=== PATIENT | female | born 1945 | race Caucasian/White ===

== ENCOUNTER 2023-12-09 11:46 | Emergency (ER) | payer MEDICARE, BC, SELFPAY ==
[2023-12-09 11:46] VITALS: BMI 25.4
[2023-12-09 11:49] VITALS: BP 168/82
--- NOTE | 2023-12-09 12:29 | ED.GENMED ---
History of Present Illness
General
Chief Complaint: Abdominal Symptoms
Time Seen by Provider: 12/09/23 12:03
Travel History
Have you had any contact with someone who has COVID-19?: No
Do you have any symptoms of coronavirus? Fever > 100 degrees, chills, cough, shortness of breath, sore throat, loss of taste or smell, muscle aches, or headache?: No
History of Present Illness
History of Present Illness:
78-year-old female with history of hypertension and hyperlipidemia presents to the emergency department for evaluation of upper abdominal pain radiating to the right flank beginning 3 days ago. Pain is worse approximately 30 to 45 minutes after any
oral intake. Radiates to the right lower quadrant. Denies any fevers but does feel chills. No night sweats, vomiting, or diarrhea. Does report increased bloating and belching. Prior abdominal surgeries include total hysterectomy.
Past History
Past History
ED Past Medical History: HTN
Social History
Tobacco: Non-smoker
Alcohol: None
Drug: None
Personal:
Review of Systems
Review of Systems
Allergies reviewed?: Yes
All Other Systems: ROS reviewed and negative except as documented in HPI and ROS
Phy Exam
Physical Exam
Physical Exam:
GEN: Well appearing, NAD, WDWN
Eyes: PERRLA, EOMs intact, no scleral icterus
HENT: NCAT, oral mucosa moist
Lungs: CTAB, no wheezes, rales, rhonchi, normal chest wall excursion
Cardiac: RRR, no M/R/G, no peripheral edema. Radial pulses 2+ bilat
Abdomen: Soft, moderate tenderness to the epigastrium and right upper quadrant with positive Baker sign
Neuro: AO x 3
MSK: No gross deformity or ecchymosis.
Skin: No rashes, petechiae. Normal color, no pallor or jaundice.
Psych: Calm, cooperative, proper hygiene
Course
Orders/Labs/Results
Orders:
Orders
12/09/23 12:22
US Abdomen Complete/Upper Urgent
Comment:
Reason For Exam: RUQ pain
12/09/23 13:06
Complete Blood Count/With Diff Urgent
Comprehensive Metabolic Panel Urgent
Lipase Urgent
12/09/23 15:23
CT Abd/Pel (IV only)-DH only Urgent
Comment:
Reason For Exam: RUQ pain, neg US
12/09/23 16:21
Famotidine [Pepcid] 20 mg IV NOW STA
Pantoprazole [Protonix IV] 40 mg IV NOW STA
Abnormal Lab Results
12/09/23
13:06
Hct 36.8 L %
(37.0-47.0)
MCV 80.9 L fL
(81.0-99.0)
Absolute Monos (auto) 0.8 H 10^3/uL
(0.1-0.6)
Lymphocytes % 19.1 L %
(20.5-51.1)
Sodium 134 L mmol/L
(135-145)
BUN 18 H mg/dl
(7-17)
Glucose 109 H mg/dl
(70-99)
12/09/23 13:06
12/09/23 13:06
Vital Signs
Initial and Last Documented VS:
Initial Vital Signs
Temp Pulse Resp BP Pulse Ox
98.0 F 96 16 168/82 98
12/09/23 11:49 12/09/23 11:49 12/09/23 11:49 12/09/23 11:49 12/09/23 11:49
Last Documented Vital Signs
Temp Pulse Resp BP Pulse Ox
98.0 F 84 16 155/69 100
12/09/23 11:49 12/09/23 16:36 12/09/23 16:36 12/09/23 16:36 12/09/23 16:36
MDM/Problems Addressed
MDM/Problems Addressed:
Patient's symptoms are likely on the basis of peptic ulcer disease evidenced by findings on CT scan. She has an unremarkable biliary ultrasound. Will start her on PPIs and Carafate, outpatient GI follow-up advised. The constipation and minor
finding of pneumatosis, she has a nonperitoneal abdomen and no lower abdominal tenderness. Encouraged bowel regimen with MiraLAX and increased dosing of Colace. ED return parameters discussed
*Critical Care Note
Total Time (30-74mins, 75-104mins- exclusive of procedures): Not Applicable
ED Attending Note
-
Portions of this chart may have been created with voice recognition software.� Occasional wrong word or��sound alike� substitutions may have occurred due to the inherent limitations of voice recognition software.
Discharge Plan
Departure
Patient Disposition: Home (Routine Discharge)
Date of Disposition: 12/09/23
Time of Disposition: 16:26
Patient with high blood pressure during this ER visit?: No
Discharge Problem:
Gastric ulcer, Constipation
Instructions: Peptic Ulcers (DC)
Prescriptions:
New
pantoprazole 40 mg tablet,delayed release (DR/EC)
40 mg PO BID 30 Days Qty: 60 0RF
sucralfate [Carafate] 1 gram tablet
1 g PO AC Qty: 90 0RF
Rx Instructions:
Dissolve in 10mL clear liquid prior to use
No Action
multivitamin 1 EACH tablet
1 ea PO DAILY
trandolapril [Mavik] 4 MG tablet
4 mg PO DAILY
simvastatin 10 MG tablet
10 mg PO MOTUWETHFR
hydrochlorothiazide 12.5 MG capsule
12.5 mg PO DAILY
conjugated estrogens [Premarin] 0.3 MG tablet
0.3 mg PO DAILY
Flaxseed
1 sc PO DAILY
Jeane
1 sc PO DAILY
potassium chloride [K-Dur] 20 MEQ tablet,ER particles/crystals
20 meq PO DAILY Qty: 30 0RF
ondansetron 4 MG tablet,disintegrating
4 mg PO TIDPRN PRN (Reason: nausea/vomiting) Qty: 9 0RF
Referrals:
Trey Cifuentes MD [Active] - Call in 1-3 days for appt
Cassie Fontenot DO [Family Provider] -
Activity Restrictions/Additional Instructions:
Your CT scan also shows severe constipation. Please increase your Colace dosage to twice daily and add a full capful of MiraLAX daily until you have regular bowel movements. Please increase your clear liquid intake while using MiraLAX. Follow-up
with gastroenterology. If your pain worsens or you develop a fever, please return to the emergency department immediately
Interventions
Interventions:
*Risk Screen - Suicide Last Done: 12/09/23 13:00
*General Assessment Last Done: 12/09/23 13:00
*Neglect/Abuse Screening Last Done: 12/09/23 13:00
ED- Fall Risk Assessment Last Done: 12/09/23 16:25
*ED COVID-19 Vaccine History Last Done: 12/09/23 11:49
*Nursing Disposition Last Done: 12/09/23 16:39
JW-Yqyvca-Vkkwvbnatk Assessment Last Done: 12/09/23 13:00
Discharge Date and Time
Discharge Date/Time: 12/09/23 16:43
Print Language: CYMRO
[2023-12-09 13:12] LABS: % Basophils 0.6 % (0-2); % Eosinophils 0.5 % (0-6); % Immature Granulocytes 0.4 % (0-0.5); % Lymphocytes 19.1 % (20.5-51.1); % Monocytes 9.3 % (1.7-9.3); % Neutrophils 70.1 % (42.2-75.2); Absolute Basophils 0.1 10^3/uL (0-0.2); Absolute Lymphocytes 1.6 10^3/uL (1.2-3.4); Absolute Monocytes 0.8 10^3/uL (0.1-0.6); Absolute Neutrophils 5.9 10^3/uL (1.4-6.5); Hematocrit 36.8 % (37.0-47.0); Hemoglobin 12.4 g/dL (12.0-16.0); Mean Corp Hgb Conc. 33.7 g/dL (33.0-37.0); Mean Corpuscular Hgb 27.3 pg (27.0-31.0); Mean Corpuscular Volume 80.9 fL (81.0-99.0); Mean Platelet Volume 9.3 fL (7.4-10.4); Nucleated Red Blood Cells % 0 %; Platelet Count 292 10^3/uL (130-400); Red Blood Cell Count 4.55 10^6/uL (4.20-5.40); Red Cell Dist. Width 13.5 % (11.5-14.5); White Blood Cell Count 8.5 10^3/uL (4.8-10.8)
[2023-12-09 13:24] LABS: ALT (SGPT) 22 U/L (0-35); AST (SGOT) 29 U/L (14-36); Albumin 4.5 g/dl (3.5-5.0); Alkaline Phosphatase 55 U/L (38-126); Blood Urea Nitrogen 18 mg/dl (7-17); Calcium 9.7 mg/dl (8.4-10.2); Carbon Dioxide 26 mmol/L (22-30); Chloride 101 mmol/L (98-107); Estimated Creatinine Clearance 54 ml/min; Glucose 109 mg/dl (70-99); Lipase 87 U/L (23-300); Potassium 3.6 mmol/L (3.5-5.1); Sodium 134 mmol/L (135-145); Total Bilirubin 0.9 mg/dl (0.2-1.3); Total Protein 7.5 g/dl (6.3-8.2); eGFR > 60.00
[2023-12-09] MEDS: PROTONIX IV 40 MG IV (16:28)
[2023-12-09] MEDS: PEPCID 20 MG IV (16:28)
[2023-12-09 16:36] VITALS: BP 155/69
== END 2023-12-09 16:43 | disposition home or self-care (01) ==
LOC: EMR 11:46
PROVIDERS: Physician Assistant; EMERGENCY PHYSICIAN Emergency Medicine; FAMILY PHYSICIAN Internal Medicine
DX: K25.3 Acute gastric ulcer without hemorrhage or perforation (principal); K59.00 Constipation, unspecified; I10 Essential (primary) hypertension; E78.5 Hyperlipidemia, unspecified
CPT/HCPCS: 99285; 96375; 96374; 74177; 76700; 80053; 83690; 85025; Q9967

== ENCOUNTER 2023-12-16 06:12 | Emergency (ER) | payer MEDICARE, BC, SELFPAY ==
[2023-12-16 06:13] VITALS: BMI 22.0
[2023-12-16] MEDS: ZOFRAN 4 MG IV (06:34)
[2023-12-16] MEDS: NSS 1000 IV (06:35)
[2023-12-16 06:45] LABS: % Basophils 0.6 % (0-2); % Eosinophils 0.1 % (0-6); % Immature Granulocytes 0.4 % (0-0.5); % Lymphocytes 12.8 % (20.5-51.1); % Monocytes 4.4 % (1.7-9.3); % Neutrophils 81.7 % (42.2-75.2); Absolute Basophils 0.1 10^3/uL (0-0.2); Absolute Lymphocytes 1.4 10^3/uL (1.2-3.4); Absolute Monocytes 0.5 10^3/uL (0.1-0.6); Absolute Neutrophils 8.8 10^3/uL (1.4-6.5); Hematocrit 42.2 % (37.0-47.0); Mean Corp Hgb Conc. 33.2 g/dL (33.0-37.0); Mean Corpuscular Hgb 27.2 pg (27.0-31.0); Mean Corpuscular Volume 81.9 fL (81.0-99.0); Mean Platelet Volume 9.6 fL (7.4-10.4); Nucleated Red Blood Cells % 0 %; Platelet Count 376 10^3/uL (130-400); Red Blood Cell Count 5.15 10^6/uL (4.20-5.40); Red Cell Dist. Width 13.1 % (11.5-14.5); White Blood Cell Count 10.8 10^3/uL (4.8-10.8)
[2023-12-16 06:56] LABS: ALT (SGPT) 22 U/L (0-35); AST (SGOT) 22 U/L (14-36); Albumin 4.5 g/dl (3.5-5.0); Alkaline Phosphatase 57 U/L (38-126); Blood Urea Nitrogen 21 mg/dl (7-17); Calcium 9.9 mg/dl (8.4-10.2); Carbon Dioxide 24 mmol/L (22-30); Chloride 100 mmol/L (98-107); Estimated Creatinine Clearance 40 ml/min; Glucose 141 mg/dl (70-99); Lipase 103 U/L (23-300); Potassium 3.6 mmol/L (3.5-5.1); Sodium 134 mmol/L (135-145); Total Bilirubin 0.6 mg/dl (0.2-1.3); Total Protein 7.3 g/dl (6.3-8.2); eGFR > 60.00
--- NOTE | 2023-12-16 07:35 | ED.GENMED ---
History of Present Illness
<Kinjal Rouse PA-C - Last Filed: 12/16/23 12:39>
General
Chief Complaint: Abdominal Symptoms
Source: patient
Exam Limitations: none
Time Seen by Provider: 12/16/23 07:04
Nursing documentation reviewed up to this point in time: agreed with
Travel History
Have you had any contact with someone who has COVID-19?: No
Do you have any symptoms of coronavirus? Fever > 100 degrees, chills, cough, shortness of breath, sore throat, loss of taste or smell, muscle aches, or headache?: No
History of Present Illness
History of Present Illness:
78 y/o F generally fairly healthy
was here 1 week ago for epigastric pain
labs unremarkable, had ct showing severe constipation, mild pneumatosis rectal area; and what looked like gastritis vs PUD
pt was put on protonix, carafate and miralax/colace
ahd f/u with her PCP 4 days ago and says her pain got a lot better
tyring to get a sooner appt with GI than february which is what she was able to get
wentt o a [facility] yesterday evening
by 8 pm she started feeling unwell
thought maybe the mirlax was really starting to work and then had 5 episodes of vomiting and diarrhea throughout the night and felt weak this morning so she called 911
felt very dehydrated
no fever, chills, and only had lower abd pain before diarrhea episodes and not otherwise
no black stool, no bloody stool
Past History
<Kinjal Rouse PA-C - Last Filed: 12/16/23 12:39>
Past History
ED Past Medical History: HTN
Social History
Tobacco: Non-smoker
Alcohol: None
Drug: None
Personal:
Review of Systems
<Kinjal Rouse PA-C - Last Filed: 12/16/23 12:39>
Review of Systems
Allergies reviewed?: Yes
All Other Systems: Not applicable
Phy Exam
<Kinjal Rouse PA-C - Last Filed: 12/16/23 12:39>
Physical Exam
Physical Exam:
GENERAL: Alert , in no apparent distress
EYE: pupils equal and reactive
NECK: Supple
ENT: o/p clr, mmm.
CARDIAC: Regular rate and rhythm .no edema
LUNGS: Clear breath sounds bilaterally, no acute respiratory distress, no wheezes/rales/rhonchi
ABDOMEN: Soft, without focal tenderness, no r/g, no cvat, normal bowel sounds
rectal heme neg brown stool
NEUROLOGICAL: Alert and oriented, no focal neuro deficits
SKIN: Warm and dry, skin intact.
MUSCULOSKELETAL: No edema, well perfused. neg carlos's sign
PSYCH: Normal and appropriate interaction.
Course
<Kinjal Rouse PA-C - Last Filed: 12/16/23 12:39>
Orders/Labs/Results
Orders:
Orders
12/16/23 06:32
Complete Blood Count/With Diff Urgent
Comprehensive Metabolic Panel Urgent
Lipase Urgent
Ondansetron Injectable [Zofran] 4 mg .ROUTE .STK-MED ONE
12/16/23 06:34
Ondansetron Injectable [Zofran] 4 mg IV NOW STA
12/16/23 06:35
0.9% Sodium Chloride 1000 ml [Nss] 1,000 ml IV BOLUS
12/16/23 07:31
Obstruct Series W/PA Chest [CR Obstruct Series W/pa Chest] Urgent
Comment:
Reason For Exam: n/v/d ,h/o severe constipation
Abnormal Lab Results
12/16/23
06:32
Absolute Neuts (auto) 8.8 H 10^3/uL
(1.4-6.5)
Neutrophils % 81.7 H %
(42.2-75.2)
Lymphocytes % 12.8 L %
(20.5-51.1)
Sodium 134 L mmol/L
(135-145)
BUN 21 H mg/dl
(7-17)
Glucose 141 H mg/dl
(70-99)
12/16/23 06:32
12/16/23 06:32
Vital Signs
Initial and Last Documented VS:
Initial Vital Signs
Temp Pulse Resp Pulse Ox
97.7 F 89 26 100
12/16/23 06:13 12/16/23 06:13 12/16/23 06:13 12/16/23 06:13
Last Documented Vital Signs
Temp Pulse Resp BP Pulse Ox
98.1 F 71 16 115/56 98
12/16/23 11:08 12/16/23 11:08 12/16/23 11:08 12/16/23 11:08 12/16/23 11:08
<Sergio Whiteside, - Last Filed: 12/16/23 08:49>
Orders/Labs/Results
Orders:
Orders
12/16/23 06:32
Complete Blood Count/With Diff Urgent
Comprehensive Metabolic Panel Urgent
Lipase Urgent
Ondansetron Injectable [Zofran] 4 mg .ROUTE .STK-MED ONE
12/16/23 06:34
Ondansetron Injectable [Zofran] 4 mg IV NOW STA
12/16/23 06:35
0.9% Sodium Chloride 1000 ml [Nss] 1,000 ml IV BOLUS
12/16/23 07:31
Obstruct Series W/PA Chest [CR Obstruct Series W/pa Chest] Urgent
Comment:
Reason For Exam: n/v/d ,h/o severe constipation
Abnormal Lab Results
12/16/23
06:32
Absolute Neuts (auto) 8.8 H 10^3/uL
(1.4-6.5)
Neutrophils % 81.7 H %
(42.2-75.2)
Lymphocytes % 12.8 L %
(20.5-51.1)
Sodium 134 L mmol/L
(135-145)
BUN 21 H mg/dl
(7-17)
Glucose 141 H mg/dl
(70-99)
12/16/23 06:32
12/16/23 06:32
Vital Signs
Initial and Last Documented VS:
Initial Vital Signs
Temp Pulse Resp Pulse Ox
97.7 F 89 26 100
12/16/23 06:13 12/16/23 06:13 12/16/23 06:13 12/16/23 06:13
Last Documented Vital Signs
Temp Pulse Resp BP Pulse Ox
98.1 F 71 16 115/56 98
12/16/23 11:08 12/16/23 11:08 12/16/23 11:08 12/16/23 11:08 12/16/23 11:08
<Kinjal Rouse PA-C - Last Filed: 12/16/23 12:39>
MDM/Problems Addressed
Differential Diagnosis Includes:
gastroenteritis, bowel obstruction, constipation
MDM/Problems Addressed:
78 y/o F htn, hld
here with epigastric pain last week
on ppi and stool softeners because she was severely constipated
symptoms improved until last nigth when she started n/v/d
no significant pain
no fever/chils/black stool
feels better after IVF and zofran
no abdominal tenderness
looked dry on exam
labs are fiarly unremarkable
considered xray rather than CT due to lack of pain/tenderness; unlikely that her pneumatosis is wosre given lack of fever and normal wbc.
xr shows some stool in colon but nonobstructive bowle gas
pt feels better
tolerated po
d/c with short rx zofran
return precatuiosn.
<Kinjal Rouse PA-C - Last Filed: 12/16/23 12:39>
*Critical Care Note
Total Time (30-74mins, 75-104mins- exclusive of procedures): Not Applicable
ED Attending Note
<Kinjal Rouse PA-C - Last Filed: 12/16/23 12:39>
-
Portions of this chart may have been created with voice recognition software.� Occasional wrong word or��sound alike� substitutions may have occurred due to the inherent limitations of voice recognition software.
<Sergio Whiteside DO - Last Filed: 12/16/23 08:49>
ED Attending Note
Patient seen and examined by attending physician: Yes
I performed the substantive portion of visit, reviewed & personally made and approve the management plan that is documented in note by myself or MONROE.: Yes
ED Attending Note:
78-year-old female who was recently here about a week ago abdominal pain. Was diagnosed with possible peptic ulcer disease but also constipation. States she had been proving a little bit and since has been having some soft bowel movements.
Patient states she began to vomit. On my evaluation patient feels much better. Previous CT report reviewed. On exam: Awake alert, no respiratory stress, abdomen soft and nontender. No distention. No active vomiting. Assessment plan: Labs
reassuring. No bowel obstruction by imaging. White count normal. Continue to observe. Anticipate discharge
Discharge Plan
Departure
Patient Disposition: Home (Routine Discharge)
Date of Disposition: 12/16/23
Time of Disposition: 10:59
Patient with high blood pressure during this ER visit?: No
Condition: Fair
Discharge Problem:
Gastroenteritis
Instructions: [place] Diet, Nausea and Vomiting, Adult (DC)
Prescriptions:
New
ondansetron 4 mg tablet,disintegrating
4 mg PO Q8HPRN PRN (Reason: nausea and vomiting) 1 Days Qty: 4 0RF
No Action
multivitamin 1 EACH tablet
1 ea PO DAILY
trandolapril [Mavik] 4 MG tablet
4 mg PO DAILY
simvastatin 10 MG tablet
10 mg PO MOTUWETHFR
hydrochlorothiazide 12.5 MG capsule
12.5 mg PO DAILY
potassium chloride [K-Dur] 20 MEQ tablet,ER particles/crystals
20 meq PO DAILY Qty: 30 0RF
ondansetron 4 MG tablet,disintegrating
4 mg PO TIDPRN PRN (Reason: nausea/vomiting) Qty: 9 0RF
pantoprazole 40 mg tablet,delayed release (DR/EC)
40 mg PO BID 30 Days Qty: 60 0RF
sucralfate [Carafate] 1 gram tablet
1 g PO AC Qty: 90 0RF
Rx Instructions:
Dissolve in 10mL clear liquid prior to use
Referrals:
Cassie Fontenot DO [Family Provider] - Follow up in 2-3 days
Activity Restrictions/Additional Instructions:
We believe that your nausea vomiting and diarrhea is probably from a virus. You did have stool still in your colon but no signs of a bowel obstruction. Your blood work was unremarkable. Try gentle hydration and increase to bland food as
tolerated. Use Zofran 4 mg every 8 hours as needed for nausea and vomiting. You should return to the ER for fever, worsening pain, continued vomiting and diarrhea/dehydration or any concerns
Interventions
Interventions:
*Risk Screen - Suicide Last Done: 12/16/23 06:13
*General Assessment Last Done: 12/16/23 06:13
*Neglect/Abuse Screening Last Done: 12/16/23 06:13
ED- Fall Risk Assessment Last Done: 12/16/23 06:24
*ED COVID-19 Vaccine History Last Done: 12/16/23 07:42
*Nursing Disposition Last Done: 12/16/23 11:10
EF-Vjyknq-Vvysspnwne Assessment Last Done: 12/16/23 06:24
Discharge Date and Time
Discharge Date/Time: 12/16/23 11:10
Print Language: NEPALI
[2023-12-16 11:08] VITALS: BP 115/56
== END 2023-12-16 11:10 | disposition home or self-care (01) ==
LOC: EMR 06:12
PROVIDERS: EMERGENCY PHYSICIAN Emergency Medicine; FAMILY PHYSICIAN Internal Medicine
DX: K52.9 Noninfective gastroenteritis and colitis, unspecified (principal); R53.1 Weakness; I10 Essential (primary) hypertension; C91.Z0 Other lymphoid leukemia not having achieved remission; E78.5 Hyperlipidemia, unspecified
CPT/HCPCS: 99284; 96374; 74022; 80053; 83690; 85025

== ENCOUNTER → 2024-05-14 10:45 | Outpatient (REF) | payer MEDICARE, BC, SELFPAY | LOC: HWRAD 10:45 | PROVIDERS: ATTENDING PHYSICIAN Internal Medicine | DX: M85.80 Other specified disorders of bone density and structure, unspecified site (principal); Z78.0 Asymptomatic menopausal state | CPT/HCPCS: 77080 ==

== ENCOUNTER → 2024-05-29 10:35 | Outpatient (REF) | payer MEDICARE, BC, SELFPAY | LOC: MRI 3T 10:35 | PROVIDERS: ATTENDING PHYSICIAN Internal Medicine | DX: K83.8 Other specified diseases of biliary tract (principal) | CPT/HCPCS: 74183; A9575 ==

== ENCOUNTER → 2024-07-04 14:47 | Outpatient (REF) | payer MEDICARE, BC, SELFPAY | LOC: HWWDC 14:47 | PROVIDERS: ATTENDING PHYSICIAN Internal Medicine | DX: Z12.31 Encounter for screening mammogram for malignant neoplasm of breast (principal) | CPT/HCPCS: 77063; 77067 ==

== ENCOUNTER → 2024-07-15 09:50 | Outpatient (REF) | payer MEDICARE, BC, SELFPAY | LOC: WDC 09:50 | PROVIDERS: ATTENDING PHYSICIAN Internal Medicine | DX: R92.8 Other abnormal and inconclusive findings on diagnostic imaging of breast (principal) | CPT/HCPCS: 76642 ==

== ENCOUNTER → 2025-01-16 14:21 | Outpatient (REF) | payer MEDICARE, BC, SELFPAY | LOC: HWWDC 14:21 | PROVIDERS: ATTENDING PHYSICIAN Internal Medicine | DX: Z12.31 Encounter for screening mammogram for malignant neoplasm of breast (principal) | CPT/HCPCS: 77061; 77065 ==

== ENCOUNTER → 2025-04-05 12:44 | Outpatient (REF) | payer MEDICARE, BC, SELFPAY | LOC: PAVMRI 12:44 | PROVIDERS: ATTENDING PHYSICIAN Internal Medicine | DX: M54.16 Radiculopathy, lumbar region (principal) | CPT/HCPCS: 72148 ==